=== PATIENT | male | born 2000 | race Caucasian/White ===

== ENCOUNTER 2019-01-30 19:50 | Emergency (ER) | payer SELFPAY ==
[~2019-01-30] VITALS: Ht 190.5 cm; Wt 85.0 kg
[2019-01-30 20:26] LABS: HEMATOCRIT 51.1 % (39.0-50.0); HEMOGLOBIN 17.8 g/dl (14.0-18.0); IMMATURE GRANULOCYTES 0.3 % (0.0-5.0); MEAN CELL VOLUME 83.5 fL CALC (80.0-100.0); MEAN CORPUSCULAR HGB 29.1 pG CALC (26.0-32.0); MEAN CORPUSCULAR HGB CONC 34.8 g/L CALC (32.0-36.0); NEUT# 6.1 thou/uL (1.82-7.42); RED BLOOD COUNT 6.12 mill/uL (4.70-6.10); RED CELL DISTRI WIDTH 12.1 % (11.5-15.5)
[2019-01-30 20:39] LABS: ALBUMIN 5.2 g/dL (3.2-5.0); ALKALINE PHOSPHATASE 72 u/l (38-126); AMYLASE 62 u/l (30-110); ANION GAP 19 (6-22 (CALC)); BILIRUBIN, TOTAL 1.8 mg/dL (0.0-1.4); BUN 15 mg/dL (9-20); BUN/CREATININE RATIO 17 (12-20 (CALC)); CARBON DIOXIDE 24 mmol/l (22-30); CHLORIDE 101 mmol/l (95-108); CREATININE 0.9 mg/dL (0.7-1.3); GFR > 60 ML/MIN (>=60 (CALC)); GFR FOR AFR.AMER. > 60 ML/MIN (>=60 (CALC)); LIPASE 40 u/l (23-300); POTASSIUM 4.2 mmol/l (3.5-5.1); SGOT/AST 25 u/l (17-59); SODIUM 139 mmol/l (137-146); TOTAL PROTEIN 8.2 g/dL (6.3-8.2)
[2019-01-30 21:33] VITALS: BP 132/77
== END 2019-01-30 21:50 | disposition home or self-care (01) | DRG 392 ==
LOC: ED 19:50
PROVIDERS: Emergency Medicine
DX: K52.9 Noninfective gastroenteritis and colitis, unspecified (principal); F17.210 Nicotine dependence, cigarettes, uncomplicated

== ENCOUNTER 2023-08-23 22:46 | Emergency (ER) | payer OTHER ==
[~2023-08-23] VITALS: Ht 190.5 cm; Wt 87.0 kg
[2023-08-23 23:00] VITALS: BP 140/88
[2023-08-23] MEDS ORDERED: SODIUM CHLORIDE 0.9% 1,000 ML IV ONE (23:00)
[2023-08-23 23:12] LABS: BASO% 0.7 % (0-3); EOS% 2.4 % (0-8); HEMATOCRIT 43.6 % (39.0-50.0); HEMOGLOBIN 15.5 g/dl (14.0-18.0); IMMATURE GRANULOCYTES 0.1 % (0.0-5.0); LYMPH% 29.7 % (15-41); MEAN CELL VOLUME 81.8 fL CALC (80.0-100.0); MEAN CORPUSCULAR HGB 29.1 pG CALC (26.0-32.0); MEAN CORPUSCULAR HGB CONC 35.6 g/dL CAL (32.0-36.0); MONO% 9.2 % (2-13); NEUT# 4.36 thou/uL (1.82-7.42); NEUT% 57.9 % (42-76); RED BLOOD COUNT 5.33 mill/uL (4.70-6.10); RED CELL DISTRI WIDTH 11.7 % (11.5-15.5)
[2023-08-23 23:28] VITALS: BP 138/82
[2023-08-23 23:29] LABS: ALKALINE PHOSPHATASE 63 u/l (38-126); ANION GAP 17 (6-22 (CALC)); BILIRUBIN, TOTAL 0.9 mg/dL (0.2-1.3); BUN 12 mg/dL (9-20); BUN/CREATININE RATIO 13 (12-20 (CALC)); CARBON DIOXIDE 19 mmol/l (22-30); CHLORIDE 107 mmol/l (95-108); CPK 138 u/l (55-170); CREATININE 0.9 mg/dL (0.7-1.3); GFR FOR AFR.AMER. > 60 ML/MIN (>=60 (CALC)); GFR OTHER RACES > 60 ML/MIN (>=60 (CALC)); MAGNESIUM 2.2 mg/dL (1.6-2.3); POTASSIUM 3.3 mmol/l (3.5-5.1); SGOT/AST 34 u/l (17-59); SODIUM 140 mmol/l (137-146); TOTAL PROTEIN 7.5 g/dL (6.3-8.2)
[2023-08-23 23:36] LABS: URINE BILIRUBIN - DIPSTICK Negative (NEGATIVE); URINE BLOOD DIPSTICK Negative (NEGATIVE); URINE GLUCOSE - DIPSTICK Negative (NEGATIVE); URINE KETONE Trace mg/dL (NEGATIVE); URINE LEUK ESTERASE Negative (NEGATIVE); URINE NITRITE - DIPSTICK Negative (Negative); URINE PROTEIN - DIPSTICK 30 mg/dL (NEG-TRACE); URINE SPECIFIC GRAVITY 1.025; URINE UROBILINOGEN - DIPSTICK 0.2 E.U./dL (0.2)
[2023-08-23 23:41] LABS: URINE COLOR Yellow
[2023-08-23 23:44] LABS: URINE MUCUS RARE hpf (NONE-FEW)
[2023-08-23 23:59] LABS: TSH, 3RD GENERATION 0.89 uIU/mL (0.47 - 4.68)
[2023-08-24] MEDS ORDERED: LACTATED RINGER'S 1,000 ML IV ONE (00:20)
[2023-08-24 01:55] VITALS: BP 138/82
== END 2023-08-24 01:55 | disposition home or self-care (01) | DRG 948 ==
LOC: ED 22:46
PROVIDERS: Family Medicine
DX: R53.1 Weakness (principal); Z20.822 Contact with and (suspected) exposure to COVID-19

== ENCOUNTER 2024-07-15 07:20 | Emergency (ER) | payer OTHER, BC ==
[~2024-07-15] VITALS: Ht 190.5 cm; Wt 87.0 kg
[2024-07-15] MEDS ORDERED: IBUPROFEN 800 MG/TAB PO ONE (07:50)
[2024-07-15 07:56] VITALS: BP 127/88
[2024-07-15] MEDS ORDERED: TYLENOL500 MG PO (09:21)
[2024-07-15] MEDS ORDERED: IBUPROFEN600 MG PO (09:21)
== END 2024-07-15 09:29 | disposition home or self-care (01) | DRG 563 ==
LOC: ED 07:20
DX: S63.502A Unspecified sprain of left wrist, initial encounter (principal); Y35.811A Legal intervention involving manhandling, law enforcement official injured, initial encounter; Y99.0 Civilian activity done for income or pay; Z72.0 Tobacco use